=== PATIENT | female | born 1940 ===

== ENCOUNTER 2024-12-03 06:23 | Day surgery (SDC) | payer OTHER ==
[2024-12-03] MEDS ORDERED: fentaNYL CITRATE 50 MCG/ML AMPUL IV PUSH ONE (10:15)
[2024-12-03] MEDS ORDERED: DIPHENHYDRAMINE HCL 50 MG/ML VIAL 1ML IV ONE (10:15)
[2024-12-03] MEDS ORDERED: MIDAZOLAM HCL 2 MG/2 ML VIAL IV ONE (10:15)
== END 2024-12-03 11:05 | disposition home or self-care (01) ==
LOC: AMB-ENDOS 06:23
PROVIDERS: ATTEND Colon & Rectal Surgery
DX: K57.32 Diverticulitis of large intestine without perforation or abscess without bleeding (principal); K57.30 Diverticulosis of large intestine without perforation or abscess without bleeding; K62.4 Stenosis of anus and rectum; K58.9 Irritable bowel syndrome, unspecified